=== PATIENT | male | born 1995 | race Two or more races ===

== ENCOUNTER 2019-01-20 13:39 | Emergency (ER) | payer SELFPAY ==
[~2019-01-20] VITALS: Ht 182.9 cm; Wt 86.2 kg
[2019-01-20 14:54] VITALS: BP 149/91
[2019-01-20 16:13] LABS: Urine Bacteria NONE SEEN /hpf (None Seen); Urine Blood Negative /uL (Negative); Urine Mucus FEW (None Seen); Urine Specific Gravity 1.034 (1.001-1.035); Urine WBC 2 /hpf (0 - 3)
== END 2019-01-20 17:05 | disposition home or self-care (01) ==
LOC: ER 13:39
DX: N48.9 Disorder of penis, unspecified (principal); R21 Rash and other nonspecific skin eruption
CPT/HCPCS: 81001